=== PATIENT | male | born 1985 | race Caucasian/White ===

== ENCOUNTER 2022-06-22 00:26 | Emergency (ER) | payer OTHER ==
[2022-06-22 00:42] VITALS: BP 116/77; PULSE 80; RESP 20; TEMP 98.2; BMI 28.5
[2022-06-22] MEDS ORDERED: ACETAMINOPHEN 500 MG TABLET (FP) PO ONE (01:14)
[2022-06-22] MEDS ORDERED: ACETAMINOPHEN 500 MG TABLET (FP) ONE (01:18)
[2022-06-22] MEDS ORDERED: KETOROLAC TROMETHAMINE 30 MG/1 ML VIAL IM ONE (02:47)
[2022-06-22] MEDS ORDERED: KETOROLAC TROMETHAMINE 30 MG/1 ML VIAL ONE (02:52)
== END 2022-06-22 02:59 | disposition home or self-care (01) ==
LOC: JER 00:26
PROC: 3E0233Z Introduction of Anti-inflammatory into Muscle, Percutaneous Approach (ICD-10-PCS; principal; 2022-06-22)
DX: J01.90 Acute sinusitis, unspecified (principal); K08.89 Other specified disorders of teeth and supporting structures
CPT/HCPCS: 70486-TC; 99285-25

== ENCOUNTER 2023-01-28 21:08 | Emergency (ER) | payer OTHER ==
[2023-01-28 21:20] VITALS: BP 125/77; PULSE 82; RESP 18; TEMP 98; BMI 29.9
[2023-01-28] MEDS ORDERED: LIDOCAINE PATCH REMOVAL MC SCH (22:00)
[2023-01-28] MEDS ORDERED: CYCLOBENZAPRINE HCL 10 MG TABLET (FP) PO ONE (22:03)
[2023-01-28] MEDS ORDERED: LIDOCAINE 5% TOPICAL PATCH TP ONE (22:03)
[2023-01-28] MEDS ORDERED: ACETAMINOPHEN 500 MG TABLET (FP) PO ONE (22:03)
[2023-01-28] MEDS ORDERED: KETOROLAC TROMETHAMINE 30 MG/1 ML VIAL IM ONE (22:03)
[2023-01-28] MEDS ORDERED: KETOROLAC TROMETHAMINE 30 MG/1 ML VIAL ONE (22:08)
[2023-01-28] MEDS ORDERED: ACETAMINOPHEN 500 MG TABLET (FP) ONE (22:08)
[2023-01-28] MEDS ORDERED: CYCLOBENZAPRINE HCL 10 MG TABLET (FP) ONE (22:08)
[2023-01-28] MEDS ORDERED: LIDOCAINE 5% TOPICAL PATCH ONE (22:08)
== END 2023-01-28 23:05 | disposition home or self-care (01) ==
LOC: JER 21:08
PROC: 3E023GC Introduction of Other Therapeutic Substance into Muscle, Percutaneous Approach (ICD-10-PCS; principal; 2023-01-28)
DX: M54.89 Other dorsalgia (principal)
CPT/HCPCS: 72100-TC-FY; 96372; 99284-25

== ENCOUNTER 2023-08-19 23:37 | Emergency (ER) | payer OTHER ==
[2023-08-19 23:50] VITALS: BP 126/84; PULSE 78; RESP 18; TEMP 98.4; BMI 29.2
[2023-08-20] MEDS ORDERED: ACETAMINOPHEN 325 MG TABLET (FP) PO ONE (01:34)
== END 2023-08-20 02:54 | disposition home or self-care (01) ==
LOC: JER 23:37
DX: M79.605 Pain in left leg (principal); M25.511 Pain in right shoulder
CPT/HCPCS: 73030-TC-RT-FY; 93970-TC; 99284-25

== ENCOUNTER 2025-04-10 19:25 | Emergency (ER) | payer OTHER ==
[2025-04-10 19:33] VITALS: BP 150/83; PULSE 82; RESP 18; TEMP 98.6; BMI 29.9
== END 2025-04-10 20:53 | disposition home or self-care (01) ==
LOC: JERFT 19:25
DX: J30.9 Allergic rhinitis, unspecified (principal); R09.81 Nasal congestion
CPT/HCPCS: 0241U-QW; 99283-25